=== PATIENT | male | born 1940 | race Caucasian/White ===

== ENCOUNTER → 2024-05-08 09:02 | Outpatient (REF) | payer MEDICARE, SELFPAY ==
[2024-05-08 10:16] LABS: % Basophils 0.7 % (0-2); % Eosinophils 3.9 % (0-6); % Immature Granulocytes 0.2 % (0-0.5); % Lymphocytes 17.2 % (20.5-51.1); % Monocytes 10.5 % (1.7-9.3); % Neutrophils 67.5 % (42.2-75.2); Absolute Eosinophils 0.2 10^3/uL (0-0.7); Absolute Lymphocytes 1.1 10^3/uL (1.2-3.4); Absolute Monocytes 0.6 10^3/uL (0.1-0.6); Absolute Neutrophils 4.1 10^3/uL (1.4-6.5); Hematocrit 41.1 % (39.0-52.0); Hemoglobin 14.3 g/dL (13.0-18.0); Mean Corp Hgb Conc. 34.8 g/dL (33.0-37.0); Mean Corpuscular Hgb 30.5 pg (27.0-31.0); Mean Corpuscular Volume 87.6 fL (80.0-94.0); Mean Platelet Volume 10.3 fL (7.4-10.4); Nucleated Red Blood Cells % 0 % (-); Platelet Count 123 10^3/uL (130-400); Red Blood Cell Count 4.69 10^6/uL (4.70-6.10); Red Cell Dist. Width 12.6 % (11.5-14.5); White Blood Cell Count 6.1 10^3/uL (4.8-10.8)
[2024-05-08 10:59] LABS: Glycohemoglobin (HgbA1c) 5.9 % (4.0-5.6)
[2024-05-08 11:01] LABS: ALT (SGPT) 23 U/L (0-50); AST (SGOT) 42 U/L (17-59); Albumin 4.3 g/dl (3.5-5.0); Alkaline Phosphatase 57 U/L (38-126); Blood Urea Nitrogen 19 mg/dl (9-20); Calcium 9.3 mg/dl (8.4-10.2); Carbon Dioxide 31 mmol/L (22-30); Chloride 98 mmol/L (98-107); Glucose 131 mg/dl (70-99); HDL Cholesterol 47 mg/dl; LDL Cholesterol, Calculated 79 mg/dl; Potassium 4.4 mmol/L (3.5-5.1); Sodium 138 mmol/L (135-145); Total Bilirubin 0.8 mg/dl (0.2-1.3); Total Cholesterol 150 mg/dl (50-199); Total Protein 6.7 g/dl (6.3-8.2); Triglyceride 122 mg/dl (10-149); Very Low Density Lipoprotein 24 mg/dl (0-30); eGFR 54.85
[2024-05-08 11:27] LABS: Ferritin 65.3 ng/ml (17.9-464.0)
== END ==
LOC: REG 09:02
PROVIDERS: ATTENDING PHYSICIAN Nurse Practitioner Family
DX: Z86.2 Personal history of diseases of the blood and blood-forming organs and certain disorders involving the immune mechanism (principal); E11.9 Type 2 diabetes mellitus without complications
CPT/HCPCS: 36415; 80053; 80061; 82728; 83036; 85025

== ENCOUNTER 2024-05-12 10:29 | Emergency (ER) | payer MEDICARE, SELFPAY ==
[2024-05-12] VITALS (7 sets, daily range): BP systolic 106–191; BP diastolic 55–86; PULSE 59–65
[2024-05-12] MEDS: NSS 1000 IV (11:57)
--- NOTE | 2024-05-12 12:06 | ED.GENMED ---
History of Present Illness
General
Chief Complaint: Dizziness
Source: patient
Exam Limitations: none
Time Seen by Provider: 05/12/24 11:10
Nursing documentation reviewed up to this point in time: agreed with
History of Present Illness
History of Present Illness:
83 y/o M with h/o CAD on asa, parkinsons
from [place], visits his SO often
saw his high school assistant football coach 1 week ago and mentioned c/o postural lightheadedness
they gave him a monitor to wear for a week and he is almost completed the week, it is sstill on
he has not heard anything from the office that it was abnormal
pt says that this morning in particular when he woke up and tried to get out of bed he felt very lightheaded and sat back down
and despite sitting back down, he still feels 'not right' in his head
he doesn't have vertiginous sounding dizziness and has no vertigo history
no cp, sob, palptiations, passing out, headache, leg swelling, vomiting, diarrhea
pt felt really well yesterday
uses propranolol for BP, didn't tolerate carvedilol and has been at this 40 mg bid dose for 3 years
pt has no headache, vision changes, neck pain
Past History
Past History
ED Past Medical History: CAD, HTN, Hypercholesterolemia and Other (parkinsons)
Social History
Tobacco: Non-smoker
Alcohol: None
Review of Systems
Review of Systems
Allergies reviewed?: Yes
All Other Systems: Not applicable
Phy Exam
Physical Exam
Physical Exam:
GENERAL: Alert , in no apparent distress
HEAD: NCAT
EYE: pupils equal and reactive, no nystagmus, no photophobia
NECK: Supple,full rom, nontender
ENT: o/p clr, mmm.
CARDIAC: Regular rate and rhythm . no edema
LUNGS: Clear breath sounds bilaterally, no acute respiratory distress, no wheezes/rales/rhonchi
ABDOMEN: Soft, without focal tenderness, no r/g, no cvat
NEUROLOGICAL: Alert and orientedx 4, cn intact, no facial asymmetry, 5/5 strength in UE/LE, sensation intact, romberg neg, tremor on intention, some gait instability, needs walker, neg pronator drift
SKIN: Warm and dry, skin intact.
MUSCULOSKELETAL: No edema, well perfused.
PSYCH: Normal and appropriate interaction.
Course
Orders/Labs/Results
Orders:
Orders
05/12/24 10:49
Electrocardiogram (*1) Urgent
Reason for Study: Chest Pain
EKG- Treatment ONCE
05/12/24 11:45
0.9% Sodium Chloride 1000 ml [Nss] 1,000 ml IV BOLUS
05/12/24 11:54
Complete Blood Count/With Diff Urgent
Comprehensive Metabolic Panel Urgent
Iron Urgent
Magnesium Urgent
Troponin I Urgent
05/12/24 12:41
CT Head W/o Iv Contrast Urgent
Comment:
Reason For Exam: dizziness
Abnormal Lab Results
05/12/24
11:54
BUN 21 H mg/dl
(9-20)
Glucose 106 H mg/dl
(70-99)
05/12/24 11:54
05/12/24 11:54
Vital Signs
Initial and Last Documented VS:
Initial Vital Signs
Temp Pulse Resp BP Pulse Ox
97.9 F 64 20 149/78 98
05/12/24 10:42 05/12/24 10:42 05/12/24 10:42 05/12/24 10:42 05/12/24 10:42
Last Documented Vital Signs
Temp Pulse Resp BP Pulse Ox
97.9 F 63 17 141/86 96
05/12/24 10:42 05/12/24 15:00 05/12/24 15:00 05/12/24 15:00 05/12/24 15:00
MDM/Problems Addressed
Differential Diagnosis Includes:
postural dizziness, orthostasis, vertigo, near syncope
MDM/Problems Addressed:
83 y/o M with h/o parkinsons, HLD, NIDDM
h/o ongoing lightheadedness with standing for which he saw his high school assistant football coach in [place] for a week ago and is wearing a monitor
but they think it's postural orthostasis
pt says that he felt worse than usual today
denies that it is vertiginous
no headache or new neuro cmoplaints
does have h/o parkinsons
on propranolol
i spoke with someone at his high school assistant football coach office in [place] who confirmed that the company for the monitor has not called them with any events thus far
also she confirmed pt has had these symptoms for some time now and doesn't tolerate other BB becuase of side effects
On exam today the patient other than his Parkinson's tremor appeared well. He did tilt with standing but did not feel overly symptomatic when he stood up.
his work up here is unremarkable other than very mild elevation of BUN, was given 1 liter of fluids and was able to get up to the bathroom and back and felt better
i d/w ed attending dr. gil who felt that with these ongoin symptoms and improvement with fluids, that if pt felt better he could be d/c home
it is very unlikely with the length of time this has been ezio on that he has verbetral basilar insufficiency/stroke
pt was given return precautions
*Critical Care Note
Total Time (30-74mins, 75-104mins- exclusive of procedures): Not Applicable
ED Attending Note
-
Portions of this chart may have been created with voice recognition software.� Occasional wrong word or��sound alike� substitutions may have occurred due to the inherent limitations of voice recognition software.
Discharge Plan
Departure
Patient Disposition: Home (Routine Discharge)
Date of Disposition: 05/12/24
Time of Disposition: 14:57
Patient with high blood pressure during this ER visit?: No
Condition: Fair
Covid-19: Not Applicable
Discharge Problem:
Postural lightheadedness
Instructions: Dizziness, Nonvertigo, (DC)
Referrals:
Kate Monzon CRNP [Family Provider] - Follow up in 2-3 days
Activity Restrictions/Additional Instructions:
It seems like her symptoms may be caused from dropping her blood pressure when you stand however this may need more of a workup. Please call the local family doctor for you to follow-up with since you are not going back to [place] for a couple of
months. Also call your high school assistant football coach and let them know that you are in the emergency department and ask about the monitor that you are wearing. Here you had no significant findings on your workup. You did drop your blood pressure some when you
stood up but you felt better after some fluids. Make sure to stay hydrated. Follow-up with the family doctor. Return to the ER for any worsening symptoms like severe headache, weakness or numbness, neck pain or neck pressure, vision changes,
chest pain or shortness of breath, passing out or any concerns.
Interventions
Interventions:
*Risk Screen - Suicide Last Done: 05/12/24 10:42
*General Assessment Last Done: 05/12/24 10:42
*Neglect/Abuse Screening Last Done: 05/12/24 10:42
ED- Fall Risk Assessment Last Done: 05/12/24 15:20
*ED COVID-19 Vaccine History Last Done: 05/12/24 11:58
*Nursing Disposition Last Done: 05/12/24 15:20
ED- Neurological Assessment Last Done: 05/12/24 11:58
ED- Cardiac Assessment Last Done: 05/12/24 15:20
ED Swallowing Screen Last Done: 05/12/24 15:15
Discharge Date and Time
Discharge Date/Time: 05/12/24 15:20
Print Language: GERMAN
[2024-05-12 12:17] LABS: % Basophils 0.6 % (0-2); % Immature Granulocytes 0.3 % (0-0.5); % Lymphocytes 22.9 % (20.5-51.1); % Monocytes 7.3 % (1.7-9.3); % Neutrophils 66.9 % (42.2-75.2); Absolute Eosinophils 0.1 10^3/uL (0-0.7); Absolute Lymphocytes 1.6 10^3/uL (1.2-3.4); Absolute Monocytes 0.5 10^3/uL (0.1-0.6); Absolute Neutrophils 4.7 10^3/uL (1.4-6.5); Hemoglobin 14.4 g/dL (13.0-18.0); Mean Corp Hgb Conc. 35.1 g/dL (33.0-37.0); Mean Corpuscular Hgb 30.6 pg (27.0-31.0); Mean Platelet Volume 9.7 fL (7.4-10.4); Nucleated Red Blood Cells % 0 % (-); Platelet Count 141 10^3/uL (130-400); Red Blood Cell Count 4.71 10^6/uL (4.70-6.10); Red Cell Dist. Width 12.2 % (11.5-14.5)
[2024-05-12 12:33] LABS: ALT (SGPT) 13 U/L (0-50); AST (SGOT) 36 U/L (17-59); Albumin 4.5 g/dl (3.5-5.0); Alkaline Phosphatase 63 U/L (38-126); Blood Urea Nitrogen 21 mg/dl (9-20); Calcium 9.3 mg/dl (8.4-10.2); Carbon Dioxide 30 mmol/L (22-30); Chloride 98 mmol/L (98-107); Glucose 106 mg/dl (70-99); Potassium 4.6 mmol/L (3.5-5.1); Sodium 137 mmol/L (135-145); Total Bilirubin 0.9 mg/dl (0.2-1.3); Total Protein 6.7 g/dl (6.3-8.2); eGFR > 60.00
[2024-05-12 12:51] LABS: Troponin I < 0.012 ng/ml
[2024-05-12 13:00] LABS: Iron 147 ug/dl (49-181)
== END 2024-05-12 15:20 | disposition home or self-care (01) ==
LOC: EMR 10:29
PROVIDERS: Physician Assistant; EMERGENCY PHYSICIAN Emergency Medicine; FAMILY PHYSICIAN Nurse Practitioner Family
DX: R42 Dizziness and giddiness (principal); I25.10 Atherosclerotic heart disease of native coronary artery without angina pectoris; G20.A1 Parkinson's disease without dyskinesia, without mention of fluctuations; I10 Essential (primary) hypertension; E78.00 Pure hypercholesterolemia, unspecified; K21.9 Gastro-esophageal reflux disease without esophagitis; E11.9 Type 2 diabetes mellitus without complications; Z79.82 Long term (current) use of aspirin; Z79.899 Other long term (current) drug therapy; Z98.0 Intestinal bypass and anastomosis status; Z88.8 Allergy status to other drugs, medicaments and biological substances
CPT/HCPCS: 99284; 96360; 70450; 80053; 83540; 83735; 84484; 85025; 93005

== ENCOUNTER → 2024-05-27 17:17 | Outpatient (REF) | payer MEDICARE, SELFPAY | LOC: RCS 17:17 | PROVIDERS: ATTENDING PHYSICIAN Nurse Practitioner Family | DX: R42 Dizziness and giddiness (principal) | CPT/HCPCS: 93306 ==

== ENCOUNTER 2024-06-16 14:50 | Outpatient (RCR) | payer MEDICARE, SELFPAY | END 2024-06-16 23:59 | disposition home or self-care (01) | LOC: RPT 14:50 | PROVIDERS: ATTENDING PHYSICIAN Nurse Practitioner Family | DX: R29.898 Other symptoms and signs involving the musculoskeletal system (principal); Z73.6 Limitation of activities due to disability; G20.A1 Parkinson's disease without dyskinesia, without mention of fluctuations | CPT/HCPCS: 97110; 97112; 97162; 97530 ==

== ENCOUNTER → 2024-06-26 14:53 | Outpatient (REF) | payer MEDICARE, SELFPAY | LOC: RAD 14:53 | PROVIDERS: ATTENDING PHYSICIAN Nurse Practitioner Family | DX: R42 Dizziness and giddiness (principal); I67.89 Other cerebrovascular disease | CPT/HCPCS: 93880 ==

== ENCOUNTER 2024-06-28 15:37 | Emergency (ER) | payer MEDICARE, SELFPAY ==
[2024-06-28 15:42] VITALS: BP 122/86
--- NOTE | 2024-06-28 17:40 | ED.GENMED ---
History of Present Illness
<Inga Young MD, Resident - Last Filed: 06/28/24 18:37>
General
Chief Complaint: Fall
Source: patient and family
Time Seen by Provider: 06/28/24 16:47
History of Present Illness
History of Present Illness:
83-year-old male, Mr. Willie Rascon, with past medical history of CAD, CABG X1, hypertension, hyperlipidemia, Parkinson's, diabetes, presented to the ER after falling from a rollator when he was pressure washing his porch. Patient reports having
pain on the left shoulder, nonradiating, 9/10 when he tries to move his arm. Patient did not lose consciousness before/during the fall, no vision problems, nausea/vomiting. Patient did not hit his head during the fall. Patient reports he took 2
Tylenol extra strength for pain control which helped him. He is right-handed.
Past History
<Inga Young MD, Resident - Last Filed: 06/28/24 18:37>
Past History
ED Past Medical History: CAD, HTN, Hypercholesterolemia and Other (parkinsons)
Social History
Tobacco: Non-smoker
Alcohol: None
Drug: None
Personal:
Living: with family
Review of Systems
<Inga Young MD, Resident - Last Filed: 06/28/24 18:37>
Review of Systems
All Other Systems: ROS reviewed and negative except as documented in HPI and ROS
Phy Exam
<Inga Young MD, Resident - Last Filed: 06/28/24 18:37>
Physical Exam
Physical Exam:
GEN: Well appearing, NAD, WDWN
Eyes: PERRLA, EOMs intact, no scleral icterus
HENT: uvuloplasty, oral mucosa moist, no JVD, no cervical adenopathy.
Lungs: CTAB, no wheezes, rales, rhonchi, normal chest wall excursion
Cardiac: RRR, no M/R/G, no peripheral edema. Radial pulses 2+ bilat
Abdomen: S, NT, ND, NABS, no masses or hepatosplenomegaly
Neuro: AO x 3, no focal deficits to BUE/BLE, normal sensation throughout
MSK: Left upper extremity�internally rotated and flexed. No visible contusion/swelling or bruises. Distal neurovasculature intact. No loss of sensation, passive and active range of motion at the shoulder joint restricted due to pain. Elbow joint
is normal.
Skin: No rashes, petechiae. Normal color, no pallor or jaundice.
Psych: Calm, cooperative, proper hygiene
Course
<[facility] Ulysses Young MD, Resident - Last Filed: 06/28/24 18:37>
Orders/Labs/Results
Orders:
Orders
06/28/24 15:43
CR Humerus - Left Min 2 Views* Urgent
Comment:
Reason For Exam: Injury
06/28/24 17:32
Ice Pack-Treatment DIRECTED
Location: left shoulder
Shoulder Immobilizer Left- Tx ONCE
Ibuprofen [Motrin] 400 mg PO NOW STA
Vital Signs
Initial and Last Documented VS:
Initial Vital Signs
Temp Pulse Resp BP Pulse Ox
97.9 F 62 16 122/86 99
06/28/24 15:42 06/28/24 15:42 06/28/24 15:42 06/28/24 15:42 06/28/24 15:42
Last Documented Vital Signs
Temp Pulse Resp BP Pulse Ox
97.9 F 62 16 122/86 99
06/28/24 15:42 06/28/24 15:42 06/28/24 15:42 06/28/24 15:42 06/28/24 15:42
<Daniel Cedeño MD - Last Filed: 06/28/24 19:07>
Orders/Labs/Results
Orders:
Orders
06/28/24 15:43
CR Humerus - Left Min 2 Views* Urgent
Comment:
Reason For Exam: Injury
06/28/24 17:32
Ice Pack-Treatment DIRECTED
Location: left shoulder
Shoulder Immobilizer Left- Tx ONCE
Ibuprofen [Motrin] 400 mg PO NOW STA
Vital Signs
Initial and Last Documented VS:
Initial Vital Signs
Temp Pulse Resp BP Pulse Ox
97.9 F 62 16 122/86 99
06/28/24 15:42 06/28/24 15:42 06/28/24 15:42 06/28/24 15:42 06/28/24 15:42
Last Documented Vital Signs
Temp Pulse Resp BP Pulse Ox
97.9 F 62 16 122/86 99
06/28/24 15:42 06/28/24 15:42 06/28/24 15:42 06/28/24 15:42 06/28/24 15:42
<Inga Young MD, Resident - Last Filed: 06/28/24 18:37>
MDM/Problems Addressed
Differential Diagnosis Includes:
Shoulder dislocation, fracture of humerus, muscle strain/muscle pull.
MDM/Problems Addressed:
Pain control with Motrin.
Shoulder x-ray�No radiographically demonstrable fracture. Left shoulder arthritis and calcific tendinosis.
Patient given ice and arm sling. Patient reports that his symptoms have improved.
Patient is hemodynamically stable for discharge.
Advised rest, ice, arm sling.
Advised pain control with Tylenol, Motrin.
Patient said that he does not want stronger pain medications to use at home after discharge.
<Inga Young MD, Resident - Last Filed: 06/28/24 18:37>
*Critical Care Note
Total Time (30-74mins, 75-104mins- exclusive of procedures): Not Applicable
<Daniel Cedeño MD - Last Filed: 06/28/24 19:07>
*Radiology
Radiology exam reviewed: radiology read reviewed
ED Attending Note
<Inga Young MD, Resident - Last Filed: 06/28/24 18:37>
-
Portions of this chart may have been created with voice recognition software.� Occasional wrong word or��sound alike� substitutions may have occurred due to the inherent limitations of voice recognition software.
<Daniel Cedeño MD - Last Filed: 06/28/24 19:07>
ED Attending Note
Patient seen and examined by attending physician: Yes
ED Attending Note:
Patient presents to ED secondary to persistent left shoulder pain, after losing balance while power washing his deck this afternoon, and falling onto his shoulder. Denies any other injuries. Denies loss of sensation or weakness. Denies elbow
pain. Denies wrist pain. Patient has taken Tylenol prior to arrival, with minimal relief in symptoms.
Physical Exam
General: mild painful distress, not acutely ill. afebrile
Head: nc/at. eomi
Neck: supple. normal range of motion.
Neuro: alert and oriented. no focal neurological deficits
Skin: no rash
Psychiatric: well kept. interactive and cooperative
Extremities: diffuse left shoulder tenderness to palpation, without deformity/swelling/erythema
History/exam consistent with left shoulder contusion. X-ray without any acute findings. Patient remains neurovascularly intact. Patient will be treated supportively with arm sling, ice application, along with recommendation to use Tylenol/Motrin
for pain relief. Advised PCP follow-up as an outpatient
Discharge Plan
Departure
Patient Disposition: Home (Routine Discharge)
Date of Disposition: 06/28/24
Time of Disposition: 18:33
Patient with high blood pressure during this ER visit?: No
Discharge Problem:
Acute pain of left shoulder, Left shoulder arthritis
Instructions: Shoulder pain
Referrals:
Kate Monzon CRNP [Family Provider] -
Activity Restrictions/Additional Instructions:
Follow-up with primary care provider within a week
Advised rest, ice, arm sling.
Pain control with Motrin, Tylenol.
Interventions
Interventions:
*Risk Screen - Suicide Last Done: 06/28/24 18:27
*General Assessment Last Done: 06/28/24 18:27
*Neglect/Abuse Screening Last Done: 06/28/24 18:27
*ED COVID-19 Vaccine History Last Done: 06/28/24 18:27
ED-Musculoskeletal Assessment Last Done: 06/28/24 18:27
ED- Neurological Assessment Last Done: 06/28/24 18:27
ED-Skin Assessment Last Done: 06/28/24 18:27
Discharge Date and Time
Print Language: ANGOLAN
[2024-06-28 17:41] VITALS: BMI 28.9
[2024-06-28] MEDS: MOTRIN 400 MG PO (17:46)
[2024-06-28 19:11] VITALS: BP 120/82
== END 2024-06-28 19:12 | disposition home or self-care (01) ==
LOC: EMR 15:37
PROVIDERS: EMERGENCY PHYSICIAN Emergency Medicine; FAMILY PHYSICIAN Nurse Practitioner Family
DX: M19.012 Primary osteoarthritis, left shoulder (principal); M25.512 Pain in left shoulder; S40.012A Contusion of left shoulder, initial encounter; W18.30XA Fall on same level, unspecified, initial encounter; Y93.89 Activity, other specified; I25.10 Atherosclerotic heart disease of native coronary artery without angina pectoris; G20.A1 Parkinson's disease without dyskinesia, without mention of fluctuations; I10 Essential (primary) hypertension; E78.00 Pure hypercholesterolemia, unspecified; E11.9 Type 2 diabetes mellitus without complications; Z95.1 Presence of aortocoronary bypass graft; Z88.8 Allergy status to other drugs, medicaments and biological substances
CPT/HCPCS: 99283; 73060

== ENCOUNTER → 2024-07-14 14:24 | Outpatient (REF) | payer MEDICARE, SELFPAY | LOC: PAVMRI 14:24 | PROVIDERS: ATTENDING PHYSICIAN Physician Assistant Surgical; FAMILY PHYSICIAN Nurse Practitioner Family | DX: S46.012A Strain of muscle(s) and tendon(s) of the rotator cuff of left shoulder, initial encounter (principal) | CPT/HCPCS: 73221 ==

== ENCOUNTER 2024-07-15 14:59 | Outpatient (RCR) | payer MEDICARE, SELFPAY | END 2024-07-15 15:45 | disposition home or self-care (01) | LOC: RPT 14:59 | PROVIDERS: ATTENDING PHYSICIAN Nurse Practitioner Family | DX: R29.898 Other symptoms and signs involving the musculoskeletal system (principal) | CPT/HCPCS: 97110; 97112; 97530 ==

== ENCOUNTER → 2024-07-24 09:58 | Outpatient (REF) | payer MEDICARE, SELFPAY | LOC: RAD 09:58 | PROVIDERS: ATTENDING PHYSICIAN Internal Medicine Interventional Cardiology; FAMILY PHYSICIAN Nurse Practitioner Family | DX: R42 Dizziness and giddiness (principal); I25.10 Atherosclerotic heart disease of native coronary artery without angina pectoris; I65.29 Occlusion and stenosis of unspecified carotid artery; R73.03 Prediabetes; E78.2 Mixed hyperlipidemia | CPT/HCPCS: 93923; 93930 ==

== ENCOUNTER → 2024-07-30 13:32 | Outpatient (REF) | payer MEDICARE, SELFPAY | LOC: RAD 13:32 | PROVIDERS: ATTENDING PHYSICIAN Physician Assistant Surgical; FAMILY PHYSICIAN Nurse Practitioner Family | DX: M25.512 Pain in left shoulder (principal) | CPT/HCPCS: 73200 ==

== ENCOUNTER 2024-09-11 06:18 | Day surgery (SDC) | payer MEDICARE, SELFPAY ==
[2024-08-24 14:09] VITALS: BMI 27.2
[2024-08-24 14:45] LABS: Hematocrit 41.9 % (39.0-52.0); Hemoglobin 14.3 g/dL (13.0-18.0); Mean Corp Hgb Conc. 34.1 g/dL (33.0-37.0); Mean Corpuscular Hgb 29.7 pg (27.0-31.0); Mean Corpuscular Volume 86.9 fL (80.0-94.0); Mean Platelet Volume 9.9 fL (7.4-10.4); Platelet Count 172 10^3/uL (130-400); Red Blood Cell Count 4.82 10^6/uL (4.70-6.10); Red Cell Dist. Width 12.5 % (11.5-14.5); White Blood Cell Count 7.9 10^3/uL (4.8-10.8)
[2024-08-24 15:21] LABS: ALT (SGPT) 12 U/L (0-50); AST (SGOT) 31 U/L (17-59); Albumin 4.6 g/dl (3.5-5.0); Alkaline Phosphatase 41 U/L (38-126); Blood Urea Nitrogen 23 mg/dl (9-20); Calcium 9.5 mg/dl (8.4-10.2); Carbon Dioxide 28 mmol/L (22-30); Chloride 97 mmol/L (98-107); Estimated Creatinine Clearance 53 ml/min; Glucose 144 mg/dl (70-99); Potassium 4.3 mmol/L (3.5-5.1); Sodium 140 mmol/L (135-145); Total Bilirubin 0.6 mg/dl (0.2-1.3); Total Protein 6.8 g/dl (6.3-8.2); eGFR > 60.00
[2024-08-25 08:05] LABS: Glycohemoglobin (HgbA1c) 5.9 % (4.0-5.6)
[2024-09-04 10:09] VITALS: BMI 27.2
--- NOTE | 2024-09-07 10:40 | VNURNOTE ---
Received info from Juan Ramon at [facility] that patient recently moved to [facility] and lives alone. He is requesting help after shoulder surgery and has hx of Parkinsons. Called patient. He is scheduled for an elective L TSA reversal on 09/11/24- he is a
same day patient with Dr Segundo. Introduced role of [facility] Liaison. Patient reports that he recently moved to [place] [id number]. There is elevator access. Patient will be there alone. He has a girlfriend and son who can
assist and will pick him up day of surgery. He has a sling and rollator walker.
PCP is Kate Monzon.
Discussed post surgical plans. Reviewed that [facility] nursing and OT can admit him to our services after he gets back home. [facility] intake notified, [facility] notified. Referral placed in [facility].
Plan: [facility] nursing, OT then outpt PT TBD
[2024-09-11] VITALS (22 sets, daily range): BP systolic 89–180; BP diastolic 50–124; PULSE 76–96; BMI 27.2
[2024-09-11] MEDS: CELEBREX 200 MG PO (08:53)
[2024-09-11] MEDS: TYLENOL 1000 MG PO (08:53)
[2024-09-11 08:54] LABS: Glucose - Point of Care 128 mg/dl (70-99)
[2024-09-11 11:06] LABS: Glucose - Point of Care 145 mg/dl (70-99)
--- NOTE | 2024-09-11 11:56 | SUR.PHASEI ---
1120: Pt. went into Vtach on the monitor, was drowsy and slow to respond. Very thready/ weak pulse was palpated during time of vtach. Fluids were open wide and blood pressure was reported as normotensive. Strip was capture on monitor and MD Flowers
was called to bedside. After 1-2 minute Vtach has self resolved and pulse then became bounding. Pt. was asymptomatic throughout event, with no complaints of chest pain, discomfort, flutter, dizziness, light headiness, etc. Fluids slowed down and
received a total of 150cc of 0.9% NSS. MD Flowers request Sanya to admit patient and BMP was sent to lab. Formal 12-lead EKG completed and indicated Normal Sinus with 1-degree block. Pt. left on 12-lead EKG at this time and will continue to monitor.
[2024-09-11 12:13] LABS: ALT (SGPT) 29 U/L (0-50); AST (SGOT) 52 U/L (17-59); Albumin 4.1 g/dl (3.5-5.0); Alkaline Phosphatase 39 U/L (38-126); Blood Urea Nitrogen 20 mg/dl (9-20); Calcium 8.6 mg/dl (8.4-10.2); Carbon Dioxide 27 mmol/L (22-30); Chloride 102 mmol/L (98-107); Estimated Creatinine Clearance 53 ml/min; Glucose 130 mg/dl (70-99); Potassium 4.6 mmol/L (3.5-5.1); Sodium 139 mmol/L (135-145); Total Bilirubin 0.5 mg/dl (0.2-1.3); Total Protein 6.2 g/dl (6.3-8.2); eGFR > 60.00
--- NOTE | 2024-09-11 13:01 | W.PN.UPDATE ---
Update Note
Progress Note Update
The patient was initially intended to be a [facility] patient; however, given an episode of V tach which self resolved over 1-2 minutes, we will admit the patient overnight for further monitoring. Both cardiac and hospitalists services have been
consulted.
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
DVT prophylaxis - ASA 325 mg PO daily x4 weeks, b/l venous foot pumps
Post-op v tach, self-resolving - monitor on tele
- BMP WNL; await Mg and TSH
- EKG w/ NSR, 1st degree AV block, anteroseptal infarct noted on/before 04/2024
HTN - monitor BP
CAD s/p PCI w/ RCA stent 2011
B/l carotid artery stenosis s/p b/l CEA (R 2013, L 2014)
PAD
- Continue statin
- Continue ASA but at 325 mg dosing x4 weeks for DVT prevention
H/o orthostasis - IVF running
- Encourage oral hydration
- Orthostatic VS q8h
HANNA, compliant w/ CPAP - monitor O2
- Continue CPAP HS
- IS
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
- Resume Metformin and Gabapentin
- SSI
- Would NOT recommend Decadron upon d/c
GERD and Del Cid�s esophagus - continue PPI therapy
Parkinson�s - on fall precautions
Hypercholesterolemia
Mild valvular disease
Diverticulosis
Colon cancer s/p right hemicolectomy 2005.����
RLS
Lumbar stenosis
Compression fx of L1 vertebrae�
Skin CA
Anxiety
Depression
H/o tobacco abuse
Daily alcohol � reported 1 drink/daily
--- NOTE | 2024-09-11 13:07 | CON.CAR ---
Addendum entered and electronically signed by Aston Vergara MD 09/11/24 16:44:
I saw and examined the patient.
The Forest Economics Professor's note was reviewed and I agree with the note.
Comment:
GEN: No distress, awake, Ox3
HEENT: supple, anicteric, mmm
LUNGS: CTA, no wheezes/rales
CV: Reg, S1/S2, 1/6 syst LSB, no murmur
ABD: soft, BS+, NT/ND
EXT: L arm dressing intact
NEURO: Gross non-focal
SKIN: No rash
plan:
83-year-old male with past medical history of hypertension, hyperlipidemia, remote coronary arteries, peripheral vascular disease, and sleep apnea presents for elective shoulder replacement today. Post procedure he was noticed to have intermittent
episodes of a wide-complex rhythm consistent with likely accelerated idioventricular rhythm and slow ventricular tachycardia. The patient was unaware of any symptoms. He currently is awake alert with no chest pains or shortness of breath.
EKG is stable with normal sinus rhythm first-degree AV block and septal Q waves. Labs today are unremarkable. Troponin is normal with normal potassium and magnesium.
Will check repeat troponin. Check echocardiogram.
He is on propranolol for tremors and for now I will continue this.
If lab work and echo are unremarkable he is stable for discharge with outpatient cardiology follow-up.
Original Note:
Consultation
Consultation Request
Date/Time Consultation Requested: 09/11/24, 1245
Date/Time Consultation Performed: 09/11/24, 1308
Requesting Provider: Dr Segundo
Performing Provider: DARCIE Rivas for Dr Ruelas
Reason for Consultation: VT
Medical History
-
Chief Complaint: NSVT on telemetry
History of Present Illness:
83-year-old male with history of hypertension, hyperlipidemia, coronary artery disease status post RCA stent in 2011, PAD, carotid artery stenosis status post bilateral CEA, obstructive sleep apnea on CPAP, essential tremor and Parkinson's disease
who underwent shoulder replacement surgery this morning under general anesthesia. While in the PACU, he was noted to have ventricular tachycardia on monitoring and concern for drowsiness/slow to respond at the time of rhythm abnormality. EKG was
performed showing normal sinus rhythm with first-degree AV block and ant/septal Q waves. Labs today: K 4.6, BUN/creatinine 20/1.1, Mag 1.9. We are consulted for evaluation/management of ventricular tachycardia.
Pt denies palpitations, chest pain, shortness of breath, lightheadedness, nausea, diaphoresis. c/o dry mouth.
He was evaluated by his manager card, Dr Pop, on 07/23/2024, and was felt to be stable for surgery as he was not having unstable angina, unstable arrythmias, or decompensated heart failure. Of note, for the past year he has been noted to have a
lower blood pressure in the left upper extremity compared to the right upper extremity with concern for possible left subclavian artery stenosis and was scheduled to follow-up with vascular surgery.
He had an echocardiogram 05/27/24 showing nl LV/RV size and fxn
Past medical history:
Hypertension
Hyperlipidemia
CAD status post RCA stent 2011
Obstructive sleep apnea on CPAP
Carotid artery stenosis status post right CEA 2013, left CEA 2014
Essential tremor-on propranolol
Parkinson's disease
Echo:05/27/24: nl LV size and fxn, EF 55-60%, nl RV size and fxn, tr MR, mild AI, AV sclerosis
Lexiscan CL 06/2023: Fixed basal inferior and mid inferior segments consistent with soft tissue attenuation
PET CT 2019: no significant ischemia
7 day heart monitor (in [place]) 05/15/24: NSR 1degree AVB, average HR 67, range 53-100bpm, 39 short runs SVT up to 48 beats; 2 runs SVT lasting 1min, 13 seconds with HR 131-144 - personally reviewed - appears wide complex. No VT
Past Medical History
Past Medical History: Other (as above)
Past Surgical History: Cholecystectomy and Other (colon resection, 2006, R CEA 2014, L CEA 2015, hernia repair 2016, carpal tunnel 03/06, kyphoplasty L1 2020, 01/09)
Social History
Tobacco: Former Smoker
Alcohol: Occasional (wine with dinner)
Family History
Family History: Other (father DM, mother lung CA)
Allergies / Home Medications
Allergy/AdvReac Type Severity Reaction Status Date / Time
amitriptyline Allergy DIZZINESS Verified 09/11/24 08:44
carbamazepine [From Tegretol] Allergy Unknown Verified 09/11/24 08:44
�Medication �Instructions �Recorded �Confirmed �Type
amantadine HCl 100 mg tablet 100 mg PO DAILY 09/04/24 09/11/24 History
ascorbic acid (vitamin C) 500 mg 500 mg PO DAILY 09/04/24 09/11/24 History
tablet (Vitamin C)
aspirin 81 mg capsule 81 mg PO DAILY 09/04/24 09/11/24 History
carbidopa 10 mg-levodopa 100 mg 2 tab PO QID 09/04/24 09/11/24 History
tablet
ezetimibe 10 mg tablet 10 mg PO DAILY 09/04/24 09/11/24 History
ferrous sulfate 325 mg (65 mg 325 mg PO DAILY 09/04/24 09/11/24 History
iron) tablet
gabapentin 600 mg tablet,extended 600 mg PO QPM 09/04/24 09/11/24 History
release 24 hr
lorazepam 0.5 mg tablet 0.5 mg PO HS 09/04/24 09/11/24 History
mecobalamin (vitamin B12) 1,000 1,000 mcg PO DAILY 09/04/24 09/11/24 History
mcg chewable tablet
metformin 500 mg tablet,extended 500 mg PO BID 09/04/24 09/11/24 History
release 24hr (osmotic)
montelukast 10 mg tablet 10 mg PO DAILY 09/04/24 09/11/24 History
omeprazole 20 mg tablet,delayed 20 mg PO DAILY 09/04/24 09/11/24 History
release
pramipexole 0.25 mg tablet 0.5 mg PO HS 09/04/24 09/11/24 History
pravastatin 20 mg tablet 20 mg PO HS 09/04/24 09/11/24 History
propranolol 40 mg tablet 40 mg PO BID 09/04/24 09/11/24 History
trazodone 100 mg tablet 100 mg PO HS 09/04/24 09/11/24 History
venlafaxine 37.5 mg 37.5 mg PO DAILY 09/04/24 09/04/24 History
capsule,extended release 24 hr
venlafaxine 75 mg tablet 75 mg PO DAILY 09/04/24 09/11/24 History
acetaminophen 500 mg capsule 1,000 mg (2 x 500 mg) PO Q6H PRN 09/11/24 Rx
Pain #60 caps
aspirin 325 mg tablet 325 mg PO DAILY #30 tabs 09/11/24 Rx
cefadroxil 500 mg capsule 500 mg PO BID #14 caps 09/11/24 Rx
celecoxib 100 mg capsule (Celebrex) 100 mg PO BID #30 caps 09/11/24 Rx
dexamethasone 4 mg tablet 4 mg PO BID #7 tabs 09/11/24 Rx
docusate sodium 100 mg capsule 100 mg PO BID #14 caps 09/11/24 Rx
(Colace)
ondansetron 4 mg disintegrating 4 mg PO Q8H #14 tabs 09/11/24 Rx
tablet
oxycodone 5 mg tablet 5 mg PO Q6H PRN Pain #14 tabs 09/11/24 Rx
sennosides 8.6 mg tablet (Senokot) 8.6 mg PO BID PRN Constipation #14 09/11/24 Rx
tabs
Review of Systems
-
History Source: Patient
All other systems: Negative unless noted
Physical Exam
Vital Signs
Temp Pulse Resp BP Pulse Ox
97.0 F 60 18 151/54 96
09/11/24 11:00 09/11/24 12:48 09/11/24 12:48 09/11/24 12:00 09/11/24 12:48
Lab Results
08/24/24 13:52
09/11/24 11:50
Impression / Plan
-
Primary Provider: DARCIE Whittington
Barbecue Cook: Alia Pop MD
Impression:
slow VT/AIVR postoperatively
CAD s/p RCA stent
HTN
DM
hyperlipidemia
Parkinson's Dz
Obstructive sleep apnea on CPAP
Carotid artery stenosis status post right CEA 2013, left CEA 2014
Essential tremor-on propranolol
upper extremity blood pressure differential
Previous CV testing:
Echo:05/27/24: nl LV size and fxn, EF 55-60%, nl RV size and fxn, tr MR, mild AI, AV sclerosis
Lexiscan CL 06/2023: Fixed basal inferior and mid inferior segments consistent with soft tissue attenuation
PET CT 2019: no significant ischemia
7 day heart monitor (in [place]) 05/15/24: NSR 1degree AVB, average HR 67, range 53-100bpm, 39 short runs SVT up to 48 beats; 2 runs SVT lasting 1min, 13 seconds with HR 131-144 - personally reviewed - appears wide complex. No VT
Plan:
-s/p reverse total shoulder arthroplasty today 09/11/24, in PACU noted to have NSVT/AIVR approx 2 minute duration - pt denies associated symptoms
-subsequent EKG shows NSR, ant/septal AK - similar to previous EKG but Q waves now V1-V4, on past EKGs Q waves V1, V2 - could be due to lead placement
-pt denies anginal symptoms currently or preoperatively
-given NSVT would check serial troponins x 3
-repeat EKG
-K and Mag WNL
-check echo
-consider changing beta diego to Metoprolol. Has been on Propranolol for h/o tremor
-ischemic workup. If troponins negative, no further VT, and pt remains asymptomatic, can be done in outpatient setting
-telemetry monitoring
-cont ASA, statin, Zetia for h/o CAD.
Data Reviewed
-
EKG: Tracing Personally Visualized and interpreted
Labs: Labs Reviewed by me
Total Time Spent with Patient (in minutes): 45
[2024-09-11 13:24] LABS: Magnesium 1.9 mg/dl (1.6-2.3)
--- NOTE | 2024-09-11 13:39 | CON.HOSP ---
Addendum entered and electronically signed by Marek Cartwright MD 09/11/24 16:29:
I saw and examined the patient.
The INSTRUCTOR BUSINESS EDUCATION or PA's note was reviewed and I agree with the note.
Comment: 83-year-old male past medical history of hypertension, hyperlipidemia, CAD status post PCI in 2012, PAD, carotid artery stenosis status post bilateral CEA, HANNA on CPAP, essential tremor and and Parkinson's disease, Del Cid's esophagus,
GERD, history of colon cancer and now presents to the hospital with noted 30 seconds of ventricular tachycardia during left shoulder replacement this morning under general anesthesia. There was concern for drowsiness/slow to respond during rhythm
abnormality as per OR. Patient had no chest pain. EKG had shown normal sinus rhythm appears to be AV block. Otherwise patient feels well during examination, vitals noted to have hypertension, labs grossly unremarkable for acute abnormality
pending troponins. Plan�trend troponins, continue telemetry monitoring, electrolyte monitoring, replete as necessary. Echocardiogram. Continue aspirin, beta-diego, statin and Zetia. Continue antihypertensives.
Original Note:
Family Physician
-
Family Physician: DARCIE Hernandez
Chief Complaint
-
medical managment.
History of Present Illness
83 year old with coronary artery disease, DM, colon cancer, anxiety, hld, htn, sleep apnea, GERD< Del Cid's esophagus, Parkinson admitted to us left shoulder reversal for medical management. . patient underwent left total shoulder reversal, post op
he was noted to 30 seconds of Vtach. at present denied fever, chills, chest pain,sob. denied WEINSTEIN, dizzy. denied abodminal pain,n,v,d. denied dysuria or hematuria.
EKg with SINUS RHYTHM WITH 1ST DEGREE A-V BLOCK ANTEROSEPTAL INFARCT
admitting for further management
Medical History
Past Medical History
Past Medical History: Reports Other
Additional Past Medical History:
Coronary artery disease, diabetes, colon cancer, anxiety, hyperlipidemia, hypertension, sleep apnea, GERD, Del Cid's esophagus, diverticulosis, severe stenosis, compression, Parkinson's
Past Surgical History: Reports Other
Additional Past Surgical History:
Right hemicolectomy, cholecystectomy, colon resection, right carotid endarterectomy RCA stent, hernia repair, carpal tunnel repair kyphoplasty
Social History
Tobacco: Former Smoker
Alcohol: None
Drug: None
Family History
Family History: Reviewed & Not Pertinent
Allergies / Home Medications
Allergies reflects when Allergies were last updated in [facility].
Home Medications with original date entered in [facility]
Allergy/Medication List:
Allergies
Allergy/AdvReac Type Severity Reaction Status Date / Time
amitriptyline Allergy DIZZINESS Verified 09/11/24 08:44
carbamazepine [From Tegretol] Allergy Unknown Verified 09/11/24 08:44
Home Medications
amantadine HCl 100 mg tablet 100 mg PO DAILY 09/04/24
ascorbic acid (vitamin C) 500 mg tablet (Vitamin C) 500 mg PO DAILY 09/04/24
aspirin 81 mg capsule 81 mg PO DAILY 09/04/24
carbidopa 10 mg-levodopa 100 mg tablet 2 tab PO QID 09/04/24
ezetimibe 10 mg tablet 10 mg PO DAILY 09/04/24
ferrous sulfate 325 mg (65 mg iron) tablet 325 mg PO DAILY 09/04/24
gabapentin 600 mg tablet,extended release 24 hr 600 mg PO QPM 09/04/24
lorazepam 0.5 mg tablet 0.5 mg PO HS 09/04/24
mecobalamin (vitamin B12) 1,000 mcg chewable tablet 1,000 mcg PO DAILY 09/04/24
metformin 500 mg tablet,extended release 24hr (osmotic) 500 mg PO BID 09/04/24
montelukast 10 mg tablet 10 mg PO DAILY 09/04/24
omeprazole 20 mg tablet,delayed release 20 mg PO DAILY 09/04/24
pramipexole 0.25 mg tablet 0.5 mg PO HS 09/04/24
pravastatin 20 mg tablet 20 mg PO HS 09/04/24
propranolol 40 mg tablet 40 mg PO BID 09/04/24
trazodone 100 mg tablet 100 mg PO HS 09/04/24
venlafaxine 37.5 mg capsule,extended release 24 hr 37.5 mg PO DAILY 09/04/24
venlafaxine 75 mg tablet 75 mg PO DAILY 09/04/24
acetaminophen 500 mg capsule 1,000 mg (2 x 500 mg) PO Q6H PRN Pain #60 caps 09/11/24
aspirin 325 mg tablet 325 mg PO DAILY #30 tabs 09/11/24
cefadroxil 500 mg capsule 500 mg PO BID #14 caps 09/11/24
celecoxib 100 mg capsule (Celebrex) 100 mg PO BID #30 caps 09/11/24
docusate sodium 100 mg capsule (Colace) 100 mg PO BID #14 caps 09/11/24
ondansetron 4 mg disintegrating tablet 4 mg PO Q8H #14 tabs 09/11/24
oxycodone 5 mg tablet 5 mg PO Q6H PRN Pain #14 tabs 09/11/24
sennosides 8.6 mg tablet (Senokot) 8.6 mg PO BID PRN Constipation #14 tabs 09/11/24
Review of Systems
-
Constitutional: Reports No Symptoms
EENT: Reports No Symptoms
Respiratory: Reports No Symptoms
Cardiac: Reports No Symptoms
Abdomen/GI: Reports No Symptoms
: Reports No Symptoms
Musculoskeletal: Reports No Symptoms
Skin: Reports No Symptoms
Neurological: Reports No Symptoms
Endocrine: Reports No Symptoms
Hematologic/Lymphatic: Reports No Symptoms
Psych: Reports No Symptoms
Physical Exam
Vital Signs
Vital Signs
Temp Pulse Resp BP Pulse Ox
97.0 F 60 18 151/54 96
09/11/24 11:00 09/11/24 12:48 09/11/24 12:48 09/11/24 12:00 09/11/24 12:48
Physical Exam
General: Well Developed, Well Nourished and No Apparent Distress
HEENT: Normocephalic, Moist Mucous Membranes and Atraumatic
Respiratory: Clear
Cardiac: S1/S2 and Regular Rhythm; Negative Murmur or Rub
GI: Soft, Non Tender, Non Distended and Normal Bowel Sounds
Rectal: Deferred by Provider
Musculoskeletal: No Clubbing, No Cyanosis and No Edema
Skin: Negative Rash
Neuro: Nonfocal/Grossly Intact
Psych: Intact Judgement
Laboratory Results
-
Laboratory Results
08/24/24 13:52
09/11/24 11:50
Total Bilirubin 0.5 mg/dl (0.2-1.3) 09/11/24 11:50
AST 52 U/L (17-59) 09/11/24 11:50
ALT 29 U/L (0-50) 09/11/24 11:50
Alkaline Phosphatase 39 U/L (38-126) 09/11/24 11:50
Data Reviewed
-
Lab Data: Labs Reviewed
Impression / Plan
-
# V. tach
-EKG with SINUS RHYTHM WITH 1ST DEGREE A-V BLOCK ANTEROSEPTAL INFARCT
-patient denied chest pain, palpitation
-cardiology consulted
#Parkinson
-Carbidopa-levodopa continued
#Hyperlipidemia
Zetia continued
-Statin continued
# Depression/anxiety
-Trazodone, venlafaxine continued
#Iron deficiency anemia
Ferrous sulfate continued
#Type 2 diabetes
-Metformin sliding scale
- carb controlled diet
#Hypertension
Propranolol continued
# Restrictive lung disease
Singulair continued
# Obstructive sleep apnea
-CPAP
# Restless leg syndrome
-Pramipexole, gabapentin continued
-
# GERD
-PPI continued
#DVT prophylaxis
-asa
#CODE status
-full code
[2024-09-11 14:05] LABS: TSH Reflex To Free T4 1.01 uIU/ml (0.47-4.68)
[2024-09-11 15:32] LABS: Troponin I < 0.012 ng/ml
[2024-09-11 16:25] LABS: Glucose - Point of Care 131 mg/dl (70-99)
[2024-09-11] MEDS: EFFEXOR XR PO (16:55)
[2024-09-11] MEDS: NSS 1000 IV (16:56)
[2024-09-11] MEDS: FEOSOL PO (16:56)
[2024-09-11] MEDS: SINEMET 10-100 2 TABLET PO ×2 (16:58→22:07)
[2024-09-11] MEDS: PROTONIX PO (16:58)
[2024-09-11] MEDS: SINEMET 10-100 PO (16:58)
[2024-09-11] MEDS: SINGULAIR PO (17:00)
[2024-09-11] MEDS: ANCEF 5 IV ×2 (17:01→23:58)
[2024-09-11] MEDS: ZETIA PO (17:01)
[2024-09-11] MEDS: SYMMETREL 100 MG PO (17:02)
[2024-09-11] MEDS: TYLENOL 650 MG PO ×3 (17:02→23:59)
[2024-09-11] MEDS: ASPIRIN 325 MG PO (17:03)
--- NOTE | 2024-09-11 18:24 | PTCARENOTE ---
Received patient from PACU via stretcher around 1450 in stable condition. Left shoulder in sling. Left shoulder dressing with small amount of drainage. Tele monitor on. NSR with 1st degree av block. Dr. Cartwright made aware of elevated bp on
admission. Patient oriented to room. Call rhoades in reach.
[2024-09-11] MEDS: BACTROBAN 2% OINTMENT 1 APPLIC NASAL (20:14)
[2024-09-11] MEDS: INDERAL 40 MG PO (20:15)
[2024-09-11] MEDS: SENOKOT 17.2 MG PO (20:15)
[2024-09-11] MEDS: GLUCOPHAGE XR EXTENDED RELEASE 500 MG PO (20:15)
[2024-09-11] MEDS: COLACE 100 MG PO (20:15)
[2024-09-11 21:52] LABS: Glucose - Point of Care 189 mg/dl (70-99)
[2024-09-11] MEDS: ATIVAN 0.5 MG PO (22:07)
[2024-09-11] MEDS: DESYREL 100 MG PO (22:07)
[2024-09-11] MEDS: PRAVACHOL 20 MG PO (22:07)
[2024-09-11] MEDS: NEURONTIN 600 MG PO (22:07)
[2024-09-11] MEDS: MIRAPEX 0.5 MG PO (22:07)
[2024-09-12 01:42] LABS: Troponin I < 0.012 ng/ml
[2024-09-12 03:10] VITALS: BP 150/63
[2024-09-12] MEDS: TYLENOL PO (04:47)
[2024-09-12 06:00] VITALS: BMI 26.8
[2024-09-12 07:50] VITALS: BP 134/88; BP 138/57; BP 141/91; PULSE 58; PULSE 68; PULSE 73
[2024-09-12 08:05] LABS: Glucose - Point of Care 122 mg/dl (70-99)
[2024-09-12] MEDS: GLUCOPHAGE XR EXTENDED RELEASE 500 MG PO (08:20)
[2024-09-12] MEDS: BACTROBAN 2% OINTMENT 1 APPLIC NASAL (08:23)
[2024-09-12] MEDS: TYLENOL 650 MG PO ×2 (08:24→12:10)
[2024-09-12] MEDS: ZETIA 10 MG PO (08:24)
[2024-09-12 08:25] LABS: Troponin I < 0.012 ng/ml
[2024-09-12] MEDS: SINGULAIR 10 MG PO (08:25)
[2024-09-12] MEDS: PROTONIX 40 MG PO (08:25)
[2024-09-12] MEDS: ASPIRIN 325 MG PO (08:26)
[2024-09-12] MEDS: FEOSOL 325 MG PO (08:26)
[2024-09-12] MEDS: CELEBREX 200 MG PO (08:26)
[2024-09-12] MEDS: SYMMETREL 100 MG PO (08:27)
[2024-09-12] MEDS: SINEMET 10-100 2 TABLET PO ×2 (08:27→12:10)
[2024-09-12] MEDS: EFFEXOR XR 37.5 MG PO (08:28)
[2024-09-12] MEDS: SENOKOT 17.2 MG PO (08:29)
[2024-09-12] MEDS: EFFEXOR XR 75 MG PO (08:29)
[2024-09-12] MEDS: COLACE 100 MG PO (08:29)
[2024-09-12] MEDS: INDERAL 40 MG PO (08:29)
--- NOTE | 2024-09-12 08:38 | W.PN.ORTHO ---
Today's Communication / Plan
-
POD1 left reverse total shoulder arthroplasty under the direction of Dr. Segundo; episode of vtach post-op
--Continue with immobilization in sling. NWB to left upper extremity. May perform gentle ROM of elbow, wrist and hand.
--ASA 325 mg daily for DVT ppx.
--Pain control as needed. Ice prn for pain and edema control.
--Dressing to remain in place until 2 week post-op visit. Reinforce/change as needed.
--Troponins stable overnight. Echo appears unchanged from May 2024. My hope is that he will be stable for dc home today. Will await input from cardiology and medicine.
--Follow up outpatient 2 weeks post-op.
Assessment
.
Distal Motor Intact: Yes
Dressing:
Clean, dry and intact.
Plan
.
Surgery / Date: Left rev TSA
DVT Prophylaxis: Aspirin
Activity:
Out of bed.
PT/OT
Subjective
.
.:
Mr. Rascon is POD1 following his left reverse total shoulder arthroplasty performed by Dr. Segundo. He was initially scheduled as an [facility] patient, but had an episode of vtach post-operatively which self-resolved after a few minutes. He was admitted for
observation. His troponins have been stable overnight, and he underwent echocardiogram yesterday. He reports he is feeling well. He denies any pain in the shoulder at present.
Vital Signs and Labs
.
Vital Signs and Labs:
Lab Results
08/24/24 13:52
09/11/24 11:50
Temp Pulse Resp BP Pulse Ox
97.5 F 63 16 138/57 97
09/12/24 07:50 09/12/24 07:50 09/12/24 07:50 09/12/24 08:29 09/12/24 07:50
Physical Exam
-
Directed exam of the left upper extremity reveals surgical dressing with slight strikethrough of blood, otherwise dry and intact. Expected post-operative edema throughout the left upper extremity. Sensation and ROM have nearly fully returned s/p
nerve block. Shoulder ROM deferred today. Patient able to flex and extend wrist, make composite fist and fully extend fingers. Sensation intact to light touch. Capillary refill <2 seconds.
--- NOTE | 2024-09-12 08:56 | W.PN.CARDCBS ---
Today's Communication / Plan
-
continue propranolol
echo with preserved EF, no significant valve disease
K/mag/TSH ok
consider OP ischemic eval given history of CAD
will arrange OP cardiac follow up
Impression / Plan
-
Primary Provider: DARCIE Whittington
Packing House Supervisor: Alia Pop MD
Impression:
slow NSVT/AIVR
L reverse TSA 09/11/24
CAD s/p RCA stent
HTN
DM
hyperlipidemia
Parkinson's Dz
Obstructive sleep apnea on CPAP
Carotid artery stenosis status post right CEA 2013, left CEA 2014
Essential tremor-on propranolol
upper extremity blood pressure differential
Previous CV testing:
Echo:05/27/24: nl LV size and fxn, EF 55-60%, nl RV size and fxn, tr MR, mild AI, AV sclerosis
Lexiscan CL 06/2023: Fixed basal inferior and mid inferior segments consistent with soft tissue attenuation
PET CT 2019: no significant ischemia
7 day heart monitor (in [place]) 05/15/24: NSR 1degree AVB, average HR 67, range 53-100bpm, 39 short runs SVT up to 48 beats; 2 runs SVT lasting 1min, 13 seconds with HR 131-144 - personally reviewed - appears wide complex. No VT
ECHO 09/11/24: EF 55 to 60%, trace MR, mild TR, trace TR, PAP 20 mmHg, normal pericardium without effusion
Plan:
-s/p L reverse TSA 09/11/24
-cardiology consulted as noted to have ~2 minutes of NSVT/AIVR in PACU, asymptomatic
-tele overnight reviewed. had additional ~2 minute episode overnight while sleeping
-trops serially negative. no symptoms of CP, SOB
-echo with structurally normal heart as above
-K/mag WNL. TSH WNL
-continue propranolol (with history of tremor)
-consider OP ischemic evaluation
-cont ASA, statin, Zetia for h/o CAD.
-will arrange OP cardiac follow up
-continue post op care, PT/OT
-d/w nursing
Progress Note - Packing House Supervisor
Subjective
Date of Service: September 12, 2024
no issues overnight. denies CP, SOB, palpitations.
Objective
Labs:
08/24/24 13:52
09/11/24 11:50
Labs
Hgb 14.3 g/dL (13.0-18.0) 08/24/24 13:52
Hct 41.9 % (39.0-52.0) 08/24/24 13:52
Plt Count 172 10^3/uL (130-400) 08/24/24 13:52
Sodium 139 mmol/L (135-145) 09/11/24 11:50
Potassium 4.6 mmol/L (3.5-5.1) 09/11/24 11:50
BUN 20 mg/dl (9-20) 09/11/24 11:50
Creatinine 1.1 mg/dL (0.7-1.3) 09/11/24 11:50
Glucose 130 mg/dl (70-99) H 09/11/24 11:50
Troponins
09/11/24 09/11/24 09/11/24
13:45 14:51 19:45
Troponin I Cancelled < 0.012 Cancelled
09/12/24 09/12/24
01:07 07:52
Troponin I < 0.012 < 0.012
Vital Signs and I&O:
Vital Signs
Temp Pulse Resp BP Pulse Ox
97.5 F 63 16 138/57 97
09/12/24 07:50 09/12/24 07:50 09/12/24 07:50 09/12/24 08:29 09/12/24 07:50
Vital Signs
Temp Pulse Resp BP Pulse Ox
97.5 F 63 16 138/57 97
09/12/24 07:50 09/12/24 07:50 09/12/24 07:50 09/12/24 08:29 09/12/24 07:50
Intake & Output
09/10/24 09/11/24 09/12/24 09/13/24
07:59 07:59 07:59 07:59
Intake Total 1260 / 1260 360 / 360
Output Total 525 / 525 125 / 125
Balance 735 / 735 235 / 235
Physical Exam
Physical Exam
GEN: No distress, awake, alert, oriented x3
HEENT: supple, anicteric, mmm, eomi
LUNGS: CTA B/L, no wheezes
CV: Reg, S1/S2, no murmur
ABD: soft, BS+, NT/ND
EXT: No cyanosis, clubbing, edema
NEURO: Gross non-focal
SKIN: Warm, pink, dry. No rash. L shoulder with dressing c/d/i. sling in place
[2024-09-12 09:34] VITALS: BP 179/76; PULSE 71; PULSE 77; O2SAT 99
--- NOTE | 2024-09-12 10:13 | CM ---
Reviewed the chart notes and spoke with the patient at the bedside. The patient resides in independent living at [facility]. The patient has a cane, rolling walker, and CPAP. The patient has not had VN nor been to SNF. The patient confirmed his
pharmacy of choice is the [facility]. The patient's significant other will be staying with him for a day or two. CM continues to be available to patient/family and is monitoring medical plan for needs at discharge.
Plan: Discharge to home with VN services. Referral previously sent and accepted.
[2024-09-12 11:00] VITALS: BP 138/61
[2024-09-12 11:42] LABS: Glucose - Point of Care 117 mg/dl (70-99)
--- NOTE | 2024-09-12 12:30 | W.PN.HOSP.TC ---
Addendum entered and electronically signed by Marek Cartwright MD 09/12/24 17:01:
[id number]
Addendum entered and electronically signed by Marek Cartwright MD 09/12/24 13:33:
#Leukocytosis
� Most likely reactive secondary to surgery
� Monitor CBC in 3 days with PCP
No evidence of infection at this time
Original Note:
Today's Communication/Plan
-
Cont propranolol
Outpatient ischemic evaluation with cardiology
Continue aspirin, statin, Zetia
Continue aspirin 325 mg daily for 30 days or otherwise stated by orthopedics
Follow-up outpatient cardiology, PCP, orthopedics
Assessment / Plan
Assessment / Plan
Physical Exam
General: Well Developed, Well Nourished and No Apparent Distress
HEENT: Normocephalic, Moist Mucous Membranes and Atraumatic
Respiratory: Clear
Cardiac: S1/S2 and Regular Rhythm; Negative Murmur or Rub
GI: Soft, Non Tender, Non Distended and Normal Bowel Sounds
Rectal: Deferred by Provider
Musculoskeletal: No Clubbing, No Cyanosis and No Edema
Skin: Negative Rash; left upper extremity reveals surgical dressing with slight strikethrough of blood, otherwise dry and intact.
Neuro: Nonfocal/Grossly Intact
Psych: Intact Judgement
# NSVR/AIVR
-seen in PACU and overnight
�Echo with no wall motion abnormality, EF 55 to 60%
Electrolytes, TSH within normal limits
� Troponins are negative, serially
� No chest pain
� Continue aspirin, statin, Zetia
� Consider outpatient ischemic evaluation w/ cardiology
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
�Ortho involved
� Follow-up orthopedics outpatient
� aspirin 325 mg daily 30 days
#Parkinson
-Carbidopa-levodopa continued
#Hyperlipidemia
Zetia continued
-Statin continued
# Depression/anxiety
-Trazodone, venlafaxine continued
#Iron deficiency anemia
Ferrous sulfate continued
#Type 2 diabetes
-Metformin sliding scale
- carb controlled diet
#Hypertension
Propranolol continued
#Essential tremor
� On propranolol
# Restrictive lung disease
Singulair continued
# Obstructive sleep apnea
-CPAP
# Restless leg syndrome
-Pramipexole, gabapentin continued
# GERD
-PPI continued
#DVT prophylaxis
-asa
#CODE status
-full code
More than 30 minutes spent in discharge including
Final examination of the patient
Summarizing hospital stay
Instructions for continuing care to all relevant caregivers
Preparation of discharge records, prescriptions, and referral forms
Total time spent (35 in minutes):
Anticipated Discharge: Today
Subjective/Interval History
-
Date of Service: September 12, 2024
Had additional 2-minute episode of NSVT/AI VR overnight, asymptomatic
Troponins are negative
Echo with structurally normal heart, no wall motion abnormality
Objective Data
-
Labs:
Laboratory Results
09/12/24
12:27
WBC Pending
Hgb Pending
Hct Pending
Plt Count Pending
Sodium Pending
Potassium Pending
Chloride Pending
Carbon Dioxide Pending
BUN Pending
Creatinine Pending
Glucose Pending
Calcium Pending
Vital Signs:
Vital Signs
Temp Pulse Resp BP Pulse Ox
97.7 F 65 16 138/61 97
09/12/24 11:00 09/12/24 11:00 09/12/24 11:00 09/12/24 11:00 09/12/24 11:00
I&O
09/11/24 09/12/24 09/13/24
06:59 06:59 06:59
Intake Total 1260 / 1260 360 / 360
Output Total 525 / 525 125 / 125
Balance 735 / 735 235 / 235
Review of Systems
-
History Source: Patient
All other systems: Not reviewed unless documented
Data Reviewed
-
Diagnostic Radiology: Image personally visualized and interpreted and Report Reviewed by me
Labs: Labs Reviewed by me
[2024-09-12 12:57] LABS: Hematocrit 35.5 % (39.0-52.0); Hemoglobin 12.4 g/dL (13.0-18.0); Mean Corp Hgb Conc. 34.9 g/dL (33.0-37.0); Mean Corpuscular Hgb 30.2 pg (27.0-31.0); Mean Corpuscular Volume 86.4 fL (80.0-94.0); Platelet Count 154 10^3/uL (130-400); Red Blood Cell Count 4.11 10^6/uL (4.70-6.10); Red Cell Dist. Width 12.9 % (11.5-14.5); White Blood Cell Count 14.4 10^3/uL (4.8-10.8)
--- NOTE | 2024-09-12 13:02 | W.DS.TRANS ---
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
-
Discharge Instructions:
Discharge Diagnosis/Procedures Left reverse shoulder replacement
NSVT/AIVR
Diet Diabetic, Carb Controlled,Low Fat,Low
Cholesterol
Activity As tolerated
Additional Activity Non-weightbearing left upper extremity
Driving Restrictions Not until seen by your Dr
Bathing Restrictions OK to Shower
Wound Care Leave Aquacel in place
Instructions:
Stand-Alone Forms: SDS Total Shoulder D/C Inst.
Changes to Home Medications: Yes
Discharge Medications:
DC Medications w/original date entered in [email or web address]
amantadine HCl 100 mg tablet 100 mg PO DAILY 09/04/24
ascorbic acid (vitamin C) 500 mg tablet (Vitamin C) 500 mg PO DAILY 09/04/24
aspirin 81 mg capsule 81 mg PO DAILY 09/04/24
carbidopa 10 mg-levodopa 100 mg tablet 2 tab PO QID 09/04/24
ezetimibe 10 mg tablet 10 mg PO DAILY 09/04/24
ferrous sulfate 325 mg (65 mg iron) tablet 325 mg PO DAILY 09/04/24
gabapentin 600 mg tablet,extended release 24 hr 600 mg PO QPM 09/04/24
lorazepam 0.5 mg tablet 0.5 mg PO HS 09/04/24
mecobalamin (vitamin B12) 1,000 mcg chewable tablet 1,000 mcg PO DAILY 09/04/24
metformin 500 mg tablet,extended release 24hr (osmotic) 500 mg PO BID 09/04/24
montelukast 10 mg tablet 10 mg PO DAILY 09/04/24
omeprazole 20 mg tablet,delayed release 20 mg PO DAILY 09/04/24
pramipexole 0.25 mg tablet 0.5 mg PO HS 09/04/24
pravastatin 20 mg tablet 20 mg PO HS 09/04/24
propranolol 40 mg tablet 40 mg PO BID 09/04/24
trazodone 100 mg tablet 100 mg PO HS 09/04/24
venlafaxine 37.5 mg capsule,extended release 24 hr 37.5 mg PO DAILY 09/04/24
venlafaxine 75 mg tablet 75 mg PO DAILY 09/04/24
acetaminophen 500 mg capsule 1,000 mg (2 x 500 mg) PO Q6H PRN Pain #60 caps 09/11/24
aspirin 325 mg tablet 325 mg PO DAILY #30 tabs 09/11/24
cefadroxil 500 mg capsule 500 mg PO BID #14 caps 09/11/24
celecoxib 100 mg capsule (Celebrex) 100 mg PO BID #30 caps 09/11/24
docusate sodium 100 mg capsule (Colace) 100 mg PO BID #14 caps 09/11/24
ondansetron 4 mg disintegrating tablet 4 mg PO Q8H #14 tabs 09/11/24
oxycodone 5 mg tablet 5 mg PO Q6H PRN Pain #14 tabs 09/11/24
sennosides 8.6 mg tablet (Senokot) 8.6 mg PO BID PRN Constipation #14 tabs 09/11/24
Home Medication Changes
acetaminophen 500 mg capsule 1,000 mg (2 x 500 mg) PO Q6H PRN Pain #60 caps 09/11/24
aspirin 325 mg tablet 325 mg PO DAILY #30 tabs 09/11/24
cefadroxil 500 mg capsule 500 mg PO BID #14 caps 09/11/24
celecoxib 100 mg capsule (Celebrex) 100 mg PO BID #30 caps 09/11/24
docusate sodium 100 mg capsule (Colace) 100 mg PO BID #14 caps 09/11/24
ondansetron 4 mg disintegrating tablet 4 mg PO Q8H #14 tabs 09/11/24
oxycodone 5 mg tablet 5 mg PO Q6H PRN Pain #14 tabs 09/11/24
sennosides 8.6 mg tablet (Senokot) 8.6 mg PO BID PRN Constipation #14 tabs 09/11/24
Pending Results: No
[2024-09-12 13:12] LABS: Blood Urea Nitrogen 24 mg/dl (9-20); Calcium 8.9 mg/dl (8.4-10.2); Carbon Dioxide 28 mmol/L (22-30); Chloride 99 mmol/L (98-107); Estimated Creatinine Clearance 59 ml/min; Glucose 93 mg/dl (70-99); Potassium 4.1 mmol/L (3.5-5.1); Sodium 140 mmol/L (135-145); eGFR > 60.00
== END 2024-09-12 14:39 | disposition home or self-care (01) ==
LOC: SDS 06:18
PROVIDERS: Nurse Practitioner; Specialist; Student in an Organized Health Care Education/Training Program; ATTENDING PHYSICIAN Internal Medicine; CONSULT PHYSICIAN Internal Medicine Cardiovascular Disease; FAMILY PHYSICIAN Nurse Practitioner Family; REFERRING PHYSICIAN Internal Medicine
DX: M19.012 Primary osteoarthritis, left shoulder (principal); Z96.612 Presence of left artificial shoulder joint
CPT/HCPCS: 23472; C1776; C1713; 36415; 73020; 80048; 80053; 82962; 83036; 83735; 84443; 84484; 85027; 87070; 93005; 93306; 97110; 97167; 97535

== ENCOUNTER → 2024-09-18 14:47 | Outpatient (REF) | payer MEDICARE, SELFPAY ==
[2024-09-18 15:48] LABS: % Basophils 0.5 % (0-2); % Eosinophils 5.1 % (0-6); % Immature Granulocytes 0.7 % (0-0.5); % Lymphocytes 19.1 % (20.5-51.1); % Monocytes 8.3 % (1.7-9.3); % Neutrophils 66.3 % (42.2-75.2); Absolute Basophils 0.1 10^3/uL (0-0.2); Absolute Eosinophils 0.5 10^3/uL (0-0.7); Absolute Immature Granulocytes 0.1 10^3/uL (0-0.05); Absolute Lymphocytes 1.8 10^3/uL (1.2-3.4); Absolute Monocytes 0.8 10^3/uL (0.1-0.6); Absolute Neutrophils 6.1 10^3/uL (1.4-6.5); Hematocrit 39.1 % (39.0-52.0); Hemoglobin 13.1 g/dL (13.0-18.0); Mean Corp Hgb Conc. 33.5 g/dL (33.0-37.0); Mean Corpuscular Hgb 29.8 pg (27.0-31.0); Mean Corpuscular Volume 89.1 fL (80.0-94.0); Mean Platelet Volume 9.8 fL (7.4-10.4); Nucleated Red Blood Cells % 0 % (-); Platelet Count 210 10^3/uL (130-400); Red Blood Cell Count 4.39 10^6/uL (4.70-6.10); Red Cell Dist. Width 12.8 % (11.5-14.5); White Blood Cell Count 9.2 10^3/uL (4.8-10.8)
== END ==
LOC: REG 14:47
PROVIDERS: ATTENDING PHYSICIAN Nurse Practitioner Family
DX: D72.829 Elevated white blood cell count, unspecified (principal)
CPT/HCPCS: 36415; 85025

== ENCOUNTER 2024-11-16 13:27 | Outpatient (RCR) | payer MEDICARE, SELFPAY | END 2024-11-16 23:59 | disposition home or self-care (01) | LOC: RPT 13:27 | PROVIDERS: ATTENDING PHYSICIAN Physician Assistant Medical; FAMILY PHYSICIAN Nurse Practitioner Family | DX: Z47.1 Aftercare following joint replacement surgery (principal); Z73.6 Limitation of activities due to disability; M62.81 Muscle weakness (generalized); M25.512 Pain in left shoulder; M25.511 Pain in right shoulder; R26.89 Other abnormalities of gait and mobility; G20.A1 Parkinson's disease without dyskinesia, without mention of fluctuations; Z96.612 Presence of left artificial shoulder joint | CPT/HCPCS: 97010; 97110; 97140; 97162; 97530 ==

== ENCOUNTER 2024-12-18 13:37 | Outpatient (RCR) | payer MEDICARE, SELFPAY | END 2024-12-18 23:59 | disposition home or self-care (01) | LOC: RPT 13:37 | PROVIDERS: ATTENDING PHYSICIAN Physician Assistant Medical; FAMILY PHYSICIAN Nurse Practitioner Family | DX: Z47.1 Aftercare following joint replacement surgery (principal); Z73.6 Limitation of activities due to disability; M62.81 Muscle weakness (generalized); M25.512 Pain in left shoulder; M25.511 Pain in right shoulder; G20.A1 Parkinson's disease without dyskinesia, without mention of fluctuations; R26.89 Other abnormalities of gait and mobility; Z96.612 Presence of left artificial shoulder joint | CPT/HCPCS: 97010; 97110; 97140 ==

== ENCOUNTER 2025-01-11 13:48 | Outpatient (RCR) | payer MEDICARE, SELFPAY | END 2025-01-11 23:59 | disposition home or self-care (01) | LOC: RPT 13:48 | PROVIDERS: ATTENDING PHYSICIAN Physician Assistant Medical; FAMILY PHYSICIAN Nurse Practitioner Family | DX: Z47.1 Aftercare following joint replacement surgery (principal); Z73.6 Limitation of activities due to disability; M62.81 Muscle weakness (generalized); M25.512 Pain in left shoulder; M25.511 Pain in right shoulder; G20.A1 Parkinson's disease without dyskinesia, without mention of fluctuations; Z96.612 Presence of left artificial shoulder joint; R26.89 Other abnormalities of gait and mobility | CPT/HCPCS: 97110; 97140 ==

== ENCOUNTER 2025-01-22 14:31 | Outpatient (RCR) | payer MEDICARE, SELFPAY | END 2025-01-22 23:59 | disposition home or self-care (01) | LOC: RPT 14:31 | PROVIDERS: ATTENDING PHYSICIAN Physician Assistant Medical; FAMILY PHYSICIAN Nurse Practitioner Family | DX: Z47.1 Aftercare following joint replacement surgery (principal); Z73.6 Limitation of activities due to disability; M62.81 Muscle weakness (generalized); Z96.612 Presence of left artificial shoulder joint; M25.512 Pain in left shoulder; M25.511 Pain in right shoulder; G20.A1 Parkinson's disease without dyskinesia, without mention of fluctuations; R26.89 Other abnormalities of gait and mobility | CPT/HCPCS: 97010; 97110; 97140 ==

== ENCOUNTER 2025-03-16 15:07 | Outpatient (RCR) | payer MEDICARE, SELFPAY | END 2025-03-16 23:59 | disposition home or self-care (01) | LOC: RPT 15:07 | PROVIDERS: ATTENDING PHYSICIAN Psychiatry & Neurology Neurology; FAMILY PHYSICIAN Nurse Practitioner Family | DX: R25.1 Tremor, unspecified (principal); G93.40 Encephalopathy, unspecified; Z73.6 Limitation of activities due to disability; R26.2 Difficulty in walking, not elsewhere classified; M62.81 Muscle weakness (generalized); G20.A1 Parkinson's disease without dyskinesia, without mention of fluctuations | CPT/HCPCS: 97110; 97112; 97162; 97530 ==

== ENCOUNTER 2025-04-15 13:43 | Outpatient (RCR) | payer MEDICARE, SELFPAY | END 2025-04-15 23:59 | disposition home or self-care (01) | LOC: RPT 13:43 | PROVIDERS: ATTENDING PHYSICIAN Psychiatry & Neurology Neurology; FAMILY PHYSICIAN Nurse Practitioner Family | DX: R25.1 Tremor, unspecified (principal); G93.40 Encephalopathy, unspecified; Z73.6 Limitation of activities due to disability; R26.2 Difficulty in walking, not elsewhere classified; M62.81 Muscle weakness (generalized); G20.A1 Parkinson's disease without dyskinesia, without mention of fluctuations | CPT/HCPCS: 97110; 97112; 97116 ==

== ENCOUNTER → 2025-04-29 12:33 | Outpatient (REF) | payer MEDICARE, SELFPAY ==
[2025-04-29 13:34] LABS: % Basophils 0.9 % (0-2); % Eosinophils 3.7 % (0-6); % Immature Granulocytes 0.3 % (0-0.5); % Lymphocytes 31.2 % (20.5-51.1); % Monocytes 6.4 % (1.7-9.3); % Neutrophils 57.5 % (42.2-75.2); Absolute Basophils 0.1 10^3/uL (0-0.2); Absolute Eosinophils 0.2 10^3/uL (0-0.7); Absolute Monocytes 0.4 10^3/uL (0.1-0.6); Absolute Neutrophils 3.8 10^3/uL (1.4-6.5); Hematocrit 34.4 % (39.0-52.0); Hemoglobin 11.1 g/dL (13.0-18.0); Mean Corp Hgb Conc. 32.3 g/dL (33.0-37.0); Mean Corpuscular Hgb 29.5 pg (27.0-31.0); Mean Corpuscular Volume 91.5 fL (80.0-94.0); Mean Platelet Volume 10.6 fL (7.4-10.4); Nucleated Red Blood Cells % 0 % (-); Platelet Count 147 10^3/uL (130-400); Red Blood Cell Count 3.76 10^6/uL (4.70-6.10); Red Cell Dist. Width 12.7 % (11.5-14.5); White Blood Cell Count 6.5 10^3/uL (4.8-10.8)
[2025-04-29 14:57] LABS: ALT (SGPT) 12 U/L (0-50); AST (SGOT) 26 U/L (17-59); Alkaline Phosphatase 38 U/L (38-126); Blood Urea Nitrogen 27 mg/dl (9-20); Calcium 9.2 mg/dl (8.4-10.2); Carbon Dioxide 29 mmol/L (22-30); Chloride 105 mmol/L (98-107); Glucose 98 mg/dl (70-99); HDL Cholesterol 43 mg/dl; Potassium 4.7 mmol/L (3.5-5.1); Sodium 140 mmol/L (135-145); Total Bilirubin 0.5 mg/dl (0.2-1.3); Total Cholesterol 106 mg/dl (50-199); Total Protein 6.1 g/dl (6.3-8.2); eGFR 49.87
[2025-04-29 15:08] LABS: LDL Cholesterol, Calculated 40 mg/dl; Triglyceride 115 mg/dl (10-149); Very Low Density Lipoprotein 23 mg/dl (0-30)
[2025-04-29 15:23] LABS: TSH Reflex To Free T4 1.75 uIU/ml (0.47-4.68)
[2025-04-30 09:22] LABS: Glycohemoglobin (HgbA1c) 5.7 % (4.0-5.6)
== END ==
LOC: OLABWHC 12:33
PROVIDERS: ATTENDING PHYSICIAN Nurse Practitioner Family
DX: Z86.2 Personal history of diseases of the blood and blood-forming organs and certain disorders involving the immune mechanism (principal); E11.9 Type 2 diabetes mellitus without complications; E78.5 Hyperlipidemia, unspecified; Z13.29 Encounter for screening for other suspected endocrine disorder
CPT/HCPCS: 36415; 80053; 80061; 83036; 84443; 85025

== ENCOUNTER 2025-05-12 13:22 | Outpatient (RCR) | payer MEDICARE, SELFPAY | END 2025-05-12 23:59 | disposition home or self-care (01) | LOC: RPT 13:22 | PROVIDERS: ATTENDING PHYSICIAN Psychiatry & Neurology Neurology; FAMILY PHYSICIAN Nurse Practitioner Family | DX: R25.1 Tremor, unspecified (principal); G93.40 Encephalopathy, unspecified; Z73.6 Limitation of activities due to disability; R26.2 Difficulty in walking, not elsewhere classified; M62.81 Muscle weakness (generalized); G20.A1 Parkinson's disease without dyskinesia, without mention of fluctuations | CPT/HCPCS: 97110; 97112; 97116 ==

== ENCOUNTER → 2025-05-20 14:06 | Outpatient (REF) | payer MEDICARE, SELFPAY ==
[2025-05-20 15:13] LABS: Hematocrit 37.0 % (39.0-52.0); Hemoglobin 12.2 g/dL (13.0-18.0); Mean Corp Hgb Conc. 33.0 g/dL (33.0-37.0); Mean Corpuscular Volume 87.9 fL (80.0-94.0); Nucleated Red Blood Cells % 0 % (-); Platelet Count 167 10^3/uL (130-400); Red Cell Dist. Width 11.9 % (11.5-14.5)
[2025-05-20 15:56] LABS: Iron 77 ug/dl (49-181)
[2025-05-20 16:05] LABS: Total Iron Binding Capacity 444 ug/dl (261-462)
[2025-05-20 16:32] LABS: Ferritin 11.4 ng/ml (17.9-464.0)
[2025-05-20 17:03] LABS: Folate 14.8 ng/ml (2.76-20); Vitamin B12 816 pg/ml (239-931)
== END ==
LOC: REG 14:06
PROVIDERS: ATTENDING PHYSICIAN Nurse Practitioner Family
DX: D64.9 Anemia, unspecified (principal); Z79.899 Other long term (current) drug therapy
CPT/HCPCS: 36415; 82607; 82728; 82746; 83540; 83550; 85025

== ENCOUNTER 2025-06-08 13:59 | Outpatient (RCR) | payer MEDICARE, SELFPAY | END 2025-06-08 23:59 | disposition home or self-care (01) | LOC: RPT 13:59 | PROVIDERS: ATTENDING PHYSICIAN Psychiatry & Neurology Neurology; FAMILY PHYSICIAN Nurse Practitioner Family | DX: R25.1 Tremor, unspecified (principal); G93.40 Encephalopathy, unspecified; Z73.6 Limitation of activities due to disability; R26.2 Difficulty in walking, not elsewhere classified; M62.81 Muscle weakness (generalized); G20.A1 Parkinson's disease without dyskinesia, without mention of fluctuations | CPT/HCPCS: 97110; 97112; 97116; 97530 ==

== ENCOUNTER → 2025-06-14 09:47 | Outpatient (REF) | payer MEDICARE, SELFPAY ==
[2025-06-14 10:49] LABS: Hematocrit 38.1 % (39.0-52.0); Hemoglobin 12.1 g/dL (13.0-18.0); Mean Corp Hgb Conc. 31.8 g/dL (33.0-37.0); Mean Corpuscular Volume 88.8 fL (80.0-94.0); Nucleated Red Blood Cells % 0 % (-); Platelet Count 149 10^3/uL (130-400); Red Cell Dist. Width 12.4 % (11.5-14.5)
[2025-06-14 11:43] LABS: Iron 306 ug/dl (49-181)
[2025-06-14 11:50] LABS: Ferritin 16.8 ng/ml (17.9-464.0)
[2025-06-14 11:52] LABS: Total Iron Binding Capacity 403 ug/dl (261-462)
== END ==
LOC: REG 09:47
PROVIDERS: ATTENDING PHYSICIAN Nurse Practitioner Family
DX: D50.9 Iron deficiency anemia, unspecified (principal)
CPT/HCPCS: 36415; 82728; 83540; 83550; 85025

== ENCOUNTER 2025-07-01 13:13 | Outpatient (RCR) | payer MEDICARE, SELFPAY | END 2025-07-02 14:04 | disposition home or self-care (01) | LOC: RPT 13:13 | PROVIDERS: ATTENDING PHYSICIAN Psychiatry & Neurology Neurology; FAMILY PHYSICIAN Nurse Practitioner Family | DX: R25.1 Tremor, unspecified (principal); G93.40 Encephalopathy, unspecified; Z73.6 Limitation of activities due to disability; R26.2 Difficulty in walking, not elsewhere classified; M62.81 Muscle weakness (generalized); G20.A1 Parkinson's disease without dyskinesia, without mention of fluctuations | CPT/HCPCS: 97110; 97112; 97116; 97530 ==

== ENCOUNTER → 2025-08-03 13:19 | Outpatient (REF) | payer MEDICARE, SELFPAY | LOC: RAD 13:19 | PROVIDERS: ATTENDING PHYSICIAN Surgery Vascular Surgery; FAMILY PHYSICIAN Nurse Practitioner Family | DX: I65.23 Occlusion and stenosis of bilateral carotid arteries (principal); I77.1 Stricture of artery | CPT/HCPCS: 93880; 93922; 93923; 93925 ==

== ENCOUNTER 2025-10-15 07:04 | Outpatient (RCR) | payer MEDICARE, SELFPAY | END 2025-10-15 23:59 | disposition home or self-care (01) | LOC: RPT 07:04 | PROVIDERS: ATTENDING PHYSICIAN Nurse Practitioner Family | DX: R26.89 Other abnormalities of gait and mobility (principal); Z73.6 Limitation of activities due to disability; G20.A1 Parkinson's disease without dyskinesia, without mention of fluctuations; M62.81 Muscle weakness (generalized) | CPT/HCPCS: 97110; 97163; 97530 ==

== ENCOUNTER 2025-11-15 09:34 | Outpatient (RCR) | payer MEDICARE, SELFPAY | END 2025-11-15 23:59 | disposition home or self-care (01) | LOC: RPT 09:34 | PROVIDERS: ATTENDING PHYSICIAN Nurse Practitioner Family | DX: R26.89 Other abnormalities of gait and mobility (principal); Z73.6 Limitation of activities due to disability; G20.A1 Parkinson's disease without dyskinesia, without mention of fluctuations; M62.81 Muscle weakness (generalized) | CPT/HCPCS: 97110; 97112; 97530 ==